=== PATIENT | male | born 2000 | race Caucasian/White ===

== ENCOUNTER 2023-03-24 18:28 | Emergency (ER) | payer MEDICAID ==
[~2023-03-24] VITALS: Ht 160 cm; Wt 60.3 kg
[2023-03-24 19:14] VITALS: BP 123/74; PULSE 90; RESP 16; TEMP 97.7; O2SAT 97
[2023-03-24 20:03] LABS: BARBITURATE, URINE NEGATIVE ng/ml (NEG <=200); BENZODIAZEPINE, URINE NEGATIVE ng/mL (NEG <=200); CANNABINOID, URINE NEGATIVE ng/mL (NEG <=50); COCAINE, URINE NEGATIVE ng/mL (NEG <=300); OPIATE, URINE NEGATIVE ng/mL (NEG <=2000); PHENCYCLIDINE SCREEN,URINE NEGATIVE ng/mL (NEG <=25)
--- NOTE | 2023-03-24 20:12 | NUR ---
23 YO M BIB MOM WITH C/C OF FEELING ANXIOUS AND DEPRESSED X1.5 MONTHS. PT IS COOPERATIVE, FLAT AFFECT AND AVOIDS EYE CONTACT. PT DENIES SI AT THIS TIME. PT SAID HE FELT SUICIDAL 1X, DENIED HAVING A PLAN. DENIES SELF-HARM ACTIONS. DENIES HI. PT STATED HE HAS BEEN FEELING MORE ANXIOUS THAN USUAL D/T SCHOOLING. PT STATES HE DIDNT KNOW WHAT CLASS TO PICK AND HAS BEEN ANXIOUS SINCE. MOTHER IS AT BEDSIDE, APPEARS TO BE SUPPORTIVE. DENIES HX, RX AND ALLERGIES
[2023-03-24 20:30] LABS: HEMOGLOBIN 15.1 g/dL (12.0-18.0); MEAN CORPUSCULAR HEMOGLOBIN 30 pg (27-31); MEAN CORPUSCULAR HGB CONC 34 g/dL (33-37); MEAN CORPUSCULAR VOLUME 86.5 fL (80-94); PLATELET COUNT (AUTO) 241 K/uL (140-450); RED BLOOD CELL COUNT(AUTO) 5.08 MIL/uL (4.20-6.10); WHITE BLOOD COUNT (AUTO) 7.2 K/uL (4.8-10.8)
[2023-03-24 20:36] LABS: ALBUMIN 4.7 g/dL (3.4-5.0); ANION GAP 13.1 (8-16); ASPARTATE AMINOTRANSFERASE 19 U/L (15-37); CARBON DIOXIDE 28.3 mmol/L (21-32); CHLORIDE 102 mmol/L (98-107); CREATININE 0.9 mg/dL (0.6-1.3); GFR ARICAN-AMERICAN 137 mL/min (>90); GLUCOSE 107 mg/dL (74-106); POTASSIUM 4.4 mmol/L (3.5-5.1); SODIUM SERUM 139 mmol/L (136-145); THYROID STIMULATING HORMONE 1.36 uIU/mL (0.34-3.74); TOTAL BILIRUBIN 0.3 mg/dL (0.0-1.0); UREA NITROGEN, BLOOD 10 mg/dL (7-18)
[2023-03-24 20:37] LABS: ACETAMINOPHEN < 0.5 ug/ml (10-30); SALICYLATE < 2.8 mg/dL (2.8-20.0)
[2023-03-24 20:58] LABS: BASOPHILS % (MANUAL) 0 % (0-2); EOSINOPHILS % (MANUAL) 1 % (0-4); LYMPHOCYTES % (MANUAL) 19 % (20-46); MONOCYTES % (MANUAL) 5 % (5-12)
--- NOTE | 2023-03-24 21:13 | NUR ---
DR. PARK SPEAKING WITH PATIENT VIA REMOTE COMMUNICATION
--- NOTE | 2023-03-24 21:32 | NUR ---
RETURN CALL FROM DR. PARK WHO SPOKE WITH DR. MARINO
--- NOTE | 2023-03-24 21:39 | NUR ---
Dr. Banuelos examining patient.
[2023-03-24] MEDS ORDERED: MIRT15OD PO (21:41)
[2023-03-24 21:46] VITALS: BP 119/85; PULSE 74; RESP 18; TEMP 98.2; O2SAT 99
== END 2023-03-24 21:46 | disposition home or self-care (01) ==
LOC: MED 18:28
DX: F43.0 Acute stress reaction (principal); F41.9 Anxiety disorder, unspecified; Z20.822 Contact with and (suspected) exposure to COVID-19
CPT/HCPCS: 36415; 80053; 80305; 84443; 85025; 87426; 87635; 99283; C9803; G0480; G0482